=== PATIENT | male | born 1945 | race African-American/Black ===

== ENCOUNTER 2017-04-28 12:14 | Inpatient (IN) | payer MEDICARE, MEDICAID ==
[2017-04-28 12:48] LABS: Bilirubin Negative (Negative); Blood, Urine Negative (Negative); Clarity CLEAR (Clear); Glucose, Urine (Dipstick) Negative (Negative); Leukocyte Small (Negative); Nitrite Negative (Negative); Protein, Urine (Dipstick) 30 mg/dL (Neg-Trace); Specific Gravity, Urine 1.025 (1.002-1.036); Urobilinogen 0.2 mg/dL (0.2-1.0)
[2017-04-28 12:50] LABS: Bacteria/HPF None Seen HPF (None Seen); Hyaline Casts/LPF 7-10 HYALINE CAST LPF (0-3 Hyaline); Pathc Cast-AUWi Flag 0.67 (0-2.49); RBC/HPF 0-3 HPF (0-3); Squamous Epithelial 0-3 HPF (0-3); WBC/HPF 21-50 HPF (0-3)
[2017-04-28 12:53] LABS: #Basophils 0.1 thou/uL (0.0-0.2); #Eosinphils 0.2 thou/uL (0.0-0.7); #Monocytes 0.7 thou/uL (0.11-0.59); #Neutrophils 4.6 thou/uL (1.40-6.50); %Eosinophils 2.5 % (0.0-10.0); %Lymphocytes 26.7 % (21.0-51.0); %Monocytes 9.1 % (0.0-10.0); %Neutrophils 60.7 % (42.0-75.0); Mean Corpuscular HGB CONC 30.3 g/dL (32.0-36.0); Mean Corpuscular Hemoglobin 22.2 pg (27.0-31.0); Mean Corpuscular Volume 73.2 fl (80.0-94.0); Mean Platelet Volume 5.6 fL (7.4-10.4); Platelet Count 129 thou/uL (130-400); RBC Distribution Width 14.1 % (11.5-14.5); Red Blood Cell (RBC) Count 5.41 mill/uL (4.70-6.10); White Blood Cell (WBC) Count 7.5 thou/uL (4.8-10.8)
[2017-04-28 12:58] LABS: Renal Epithelial None Seen HPF (0-3); Transitional Epithelial NONE SEEN HPF (0-3)
[2017-04-28 13:01] LABS: INR-International Normal Ratio 1.1; PTT 28.5 SEC (22.9-36.1); Prothrombin Time 14.6 SEC (12.0-14.7)
[2017-04-28 13:05] LABS: Hypochromia SLIGHT = 6-15 cells (100X) (0-5/hpf); MDiff Complete? YES; Microcytosis SLIGHT = 6-15 cells (100X) (0-5/hpf); Polychromasia SLIGHT = 2-3 cells (100X) (0-2/hpf); Target Cells MODERATE= 6-15 cells (100X) (0-1/hpf)
[2017-04-28 13:07] LABS: ALT (SGPT) 28 U/L (8-55); AST (SGOT) 80 U/L (5-34); Albumin 3.8 g/dL (3.4-4.8); Alkaline Phosphatase 98 U/L (40-150); Anion Gap 16 mmol/L (10-20); BUN (Urea Nitrogen) 12 mg/dL (8.4-25.7); Bilirubin, Total 0.7 mg/dL (0.2-1.2); Calc. Creatinine Clearance 0 mL/min (70-130); Calcium 9.5 mg/dL (7.8-10.44); Carbon Dioxide 22 mmol/L (23-31); Chloride 106 mmol/L (98-107); Estimated GFR-MDRD Greater than 90; Globulin 3.6 g/dL (2.4-3.5); Glucose 71 mg/dL (80-115); Potassium 3.9 mmol/L (3.5-5.1); Protein, Total 7.4 g/dL (5.8-8.1); Sodium 140 mmol/L (136-145)
[2017-04-28 13:11] LABS: CKMB 5.9 ng/mL (0-6.6); Troponin I Less than 0.010 ng/mL (< 0.028)
--- NOTE | 2017-04-28 13:18 | CT ---
HEAD CT WITHOUT CONTRAST: Date: 04-28-17 Comparison: 07-15-14 History: Lethargy, altered mental status, mental status changes. Technique: Serial axial CT imaging at 5 mm intervals from vertex through skull base without contrast. FINDINGS: The imaged paranasal sinuses/mastoid air cells are well aerated. There is no displaced calvarial frac ture noted. There is no intracranial hemorrhage, midline shift, mass effect, or ventricular enlargement. There is periventricular deep white matter hypodensity, evidence of stable small vessel disease. Stable mild cerebral volume loss. IMPRESSION: Stable head CT. No intracranial hemorrhage. POS: [facility]
[2017-04-28] MEDS ORDERED: Dextrose 50% Abboject 50 ML SYRINGE ONE (16:17)
[2017-04-28] MEDS ORDERED: Ondansetron ODT 4 MG TAB PO PRN (18:37)
[2017-04-28] MEDS ORDERED: Bisacodyl 5 MG TAB PO PRN (18:37)
[2017-04-28] MEDS ORDERED: Ondansetron HCl/PF 4 MG/2 ML Vial IVP PRN (18:37)
[2017-04-28 19:27] VITALS: BMI 22.1
[2017-04-28] MEDS: Sodium Chloride 0.9% 1,000 ML IV SCH (20:09)
[2017-04-28] MEDS: Famotidine 20 MG TAB PO SCH (20:20)
[2017-04-28] MEDS: Docusate 100 MG CAP PO SCH (20:20)
--- NOTE | 2017-04-28 22:34 | HP ---
PRIMARY CARE PHYSICIAN: Marcelo Wick M.D. CHIEF COMPLAINT: Altered mental status. HISTORY OF PRESENT ILLNESS: This is a 71-year-old male assisted resident at [facility] with a history of Wernicke's encephalopathy, generalized seizures, TIA and dementia as well as dysphasia. He reportedly though is able to sit up in his wheelchair and rolling self around and is able to speak with people at the assisted and he does eat food himself. He has had a decline over the last week, especially over the last couple of days with decreased speech, decreased ability to feed himself and to move around. He was seen at the [facility] yesterday, diagnosed with UTI and started on Keflex. He had significant worsening this morning, became more lethargic and was noted to have right-sided weakness around 8:00 this morning, so he was brought in here. It was initially thought to be a possible stroke; however, when he arrived, patient was moving both his arms kind of shaking them a little bit. He is not able to speak with any clarity and not able to say anything understandable, not able to follow any instructions. The patient was found to have infected-looking urine in the emergency room and was given a dose of Rocephin. The remainder of his lab work vital signs was normal, so he has been given fluids and put in observation for this UTI. PAST MEDICAL HISTORY: All history taken from the chart as the patient is not able to give any history. 1. Seizure disorder. 2. Wernicke's encephalopathy. 3. Dementia. 4. Dysphagia. 5. Transient ischemic attack. 6. History of transient ischemic attack. 7. Atrial flutter. 8. Hypotension. PAST SURGICAL HISTORY: None. PAST PSYCHIATRIC: None. SOCIAL HISTORY: Patient has a history of alcohol abuse, previous to being in the assisted. No tobacco or illicit drug use currently. He did previously smoke. FAMILY HISTORY: No known family history. ALLERGIES: No known drug allergies CURRENT MEDICATIONS: home medications reviewed from chart, please see [place] for list REVIEW OF SYSTEMS: Unable to obtain secondary to patient's mental status. See HPI for all that is known from chart review and from the emergency physician's discussion with the nurse practitioner at the assisted. PHYSICAL EXAMINATION: VITAL SIGNS: Blood pressure 145/65, pulse 82, respirations 12, O2 sat 100% on room air, temperature 97.6. GENERAL: This is a thin -[place] male who is alert, but confused and disoriented with mumbling and discernible speech, not able to follow commands. HEENT: Eyes, left pupil is equal, round and reactive to light. Right, there seemed to have some scarring on the cornea and was not reactive. Oropharynx, dry mucous membranes, I did not notice any exudate or swelling. NECK: Supple, no lymphadenopathy, no thyroid nodules or enlargement, no JVD. HEART: Regular rate and rhythm, no murmurs, rubs or gallops. LUNGS: Clear to auscultation bilaterally, no wheezes, crackles or rhonchi, though he would not get any deep breaths for good exam. ABDOMEN: Soft, nontender to palpation, normoactive bowel sounds, no hepatosplenomegaly or other masses. EXTREMITIES: Patient has thin extremities. He is kind of shaking his right extremity, not moving his left as much. He has decent tone in the extremities and his reflexes are equal in all extremities. SKIN: No rashes or other lesions noted. NEUROLOGIC: No focal findings. LABORATORY DATA: CBC grossly unremarkable, mild microcytic anemia, hemoglobin of 12, MCV of 73. Coagulation profile normal. Complete metabolic panel notable only for an AST of 80, carbon dioxide of 22 with a glucose of 71. Cardiac marker set negative x1. Lactic acid was normal. Glucose, recheck with fingerstick, was 68. Urinalysis did show ketones, small leukocyte esterase and 21-50 white blood cells, no bacteria seen currently. He did not have any valproic acid. His Keppra level was 26.6, which is therapeutic, though on the lower side of that. Brain CT done in the emergency room shows no intracranial hemorrhage, stable. ASSESSMENT AND PLAN: 1. Acute encephalopathy, likely secondary to his infection. 2. Urinary tract infection without evidence of sepsis. Patient was given Rocephin in the emergency room, and we will continue IV in the hospital. 3. Appears dehydrated. We will give IV fluids and watch for improvement in his mental status. 4. History of seizure disorder. We will resume patient's anti-seizure medications. 5. History of dysphasia. We will have patient's speech therapy to evaluate the patient's swallow and give recommendations. 6. Code status, unable to confirm this with the patient right now. No family at the bedside. This will need to be confirmed later. MTDD
[2017-04-29] MEDS: Sodium Chloride 0.9% 1,000 ML IV SCH ×3 (01:25→09:00)
[2017-04-29 05:24] LABS: #Basophils 0.1 thou/uL (0.0-0.2); #Eosinphils 0.4 thou/uL (0.0-0.7); #Lymphocytes 1.4 thou/uL (1.20-3.40); #Monocytes 0.6 thou/uL (0.11-0.59); #Neutrophils 3.4 thou/uL (1.40-6.50); %Basophils 1.2 % (0.0-1.0); %Eosinophils 7.1 % (0.0-10.0); %Lymphocytes 23.8 % (21.0-51.0); %Monocytes 10.4 % (0.0-10.0); %Neutrophils 57.5 % (42.0-75.0); Anion Gap 13 mmol/L (10-20); BUN (Urea Nitrogen) 12 mg/dL (8.4-25.7); Calc. Creatinine Clearance 96 mL/min (70-130); Carbon Dioxide 24 mmol/L (23-31); Chloride 108 mmol/L (98-107); Estimated GFR-MDRD Greater than 90; Glucose 60 mg/dL (80-115); Hemoglobin 12.1 g/dL (14.0-18.0); Mean Corpuscular HGB CONC 29.7 g/dL (32.0-36.0); Mean Corpuscular Hemoglobin 21.8 pg (27.0-31.0); Mean Corpuscular Volume 73.4 fl (80.0-94.0); Platelet Count 124 thou/uL (130-400); RBC Distribution Width 13.9 % (11.5-14.5); Red Blood Cell (RBC) Count 5.57 mill/uL (4.70-6.10); Sodium 141 mmol/L (136-145)
[2017-04-29] MEDS: Famotidine 20 MG TAB PO SCH ×2 (09:01→20:43)
[2017-04-29] MEDS: Enoxaparin Sodium 40 MG/0.4 ML SYRINGE SC SCH (09:01)
[2017-04-29] MEDS: Docusate 100 MG CAP PO SCH ×2 (09:02→20:43)
[2017-04-29] MEDS ORDERED: clonazePAM 1 MG TAB PO PRN (09:47)
[2017-04-29] MEDS ORDERED: Labetalol HCl 100 MG/20 ML VIAL SLOW IVP PRN (09:48)
[2017-04-29] MEDS ORDERED: Artificial Tears 18 DROP/0.9 ML EA EYE PRN (09:48)
[2017-04-29] MEDS ORDERED: HYDROcodone/Acetaminophen 5/325 mg Tablet PO PRN (09:48)
[2017-04-29] MEDS ORDERED: Eucerin (Mineral Oil/Petrolatum,White) 30 gm Jar TOP PRN (09:48)
[2017-04-29] MEDS ORDERED: Loratadine 10 MG TAB PO PRN (09:48)
[2017-04-29] MEDS ORDERED: hydrALAZINE 20 MG/ML VIAL SLOW IVP PRN (09:48)
[2017-04-29] MEDS ORDERED: Mag-Al 1200 mg/1200 mg/30 ML UDCUP PO PRN (09:48)
[2017-04-29] MEDS ORDERED: Loperamide HCl 2 MG CAP PO PRN (09:48)
[2017-04-29] MEDS ORDERED: Acetaminophen 325 MG TAB PO PRN (09:48)
[2017-04-29] MEDS ORDERED: Sodium Chloride 0.65% Nasal 44 ML BOT EA NARE PRN (09:48)
[2017-04-29] MEDS ORDERED: Milk Of Magnesia 30 ML UDCUP PO PRN (09:48)
[2017-04-29] MEDS ORDERED: Diabetic Tussin 200 MG/10 ML UDCUP PO PRN (09:48)
[2017-04-29] MEDS ORDERED: Chloraseptic Spray 180 ml Bottle PO PRN (09:48)
[2017-04-29] MEDS ORDERED: Temazepam 15 MG CAP PO PRN (09:48)
[2017-04-29] MEDS ORDERED: Famotidine/PF 20 mg/2ml Vial SLOW IVP PRN (09:57)
[2017-04-29] MEDS: Dextrose 5 %-0.45 % NaCl 1,000 ML IV SCH (10:37)
--- NOTE | 2017-04-29 11:39 | PDOC.PN ---
- Subjective Encounter Start Date: 04/29/17 Encounter Start Time: 08:10 -: old records requested/rev pt is still disoriented, did not talk to me, NPO for speech evaluation - Objective MAR Reviewed: Yes Vital Signs & Weight: Vital Signs (12 hours) Temp Pulse Resp BP Pulse Ox 04/29/17 08:16 97.4 F L 54 L 16 179/73 H 99 04/29/17 07:46 97.6 F 59 L 18 04/29/17 04:36 97.6 F 59 L 18 174/73 H 95 04/29/17 00:27 97.8 F 62 18 165/77 H 99 Result Diagrams: 04/29/17 04:57 04/29/17 04:57 Radiology Reviewed by me: Yes Phys Exam - Physical Examination Constitutional: NAD HEENT: PERRLA, sclera anicteric Neck: no JVD, supple Respiratory: no wheezing, no rales, no rhonchi Cardiovascular: RRR, no significant murmur, no rub Gastrointestinal: soft, non-tender, no distention, positive bowel sounds Musculoskeletal: no edema, pulses present unable to assess as he did not follow command Lymphatic: no nodes Deviation from normal: unable to assess Skin: no rash, normal turgor Dx/Plan (1) Encephalopathy acute Code(s): G93.40 - ENCEPHALOPATHY, UNSPECIFIED Status: Acute (2) Urinary tract infection Status: Acute (3) Anxiety and depression Code(s): F41.8 - OTHER SPECIFIED ANXIETY DISORDERS Status: Chronic (4) Dementia Code(s): F03.90 - UNSPECIFIED DEMENTIA WITHOUT BEHAVIORAL DISTURBANCE Status: Chronic (5) Epilepsy Code(s): G40.909 - EPILEPSY, UNSP, NOT INTRACTABLE, WITHOUT STATUS EPILEPTICUS Status: Chronic - Plan cont current plan of care, continue antibiotics * continue rocephin * medication reviewed as below * symptomatic treatment * speech therapy evaluation * Pepcid IV as needed * continue IVF * follow culture. Review of Systems - Review of Systems Other: unable to review due to cognitive status - Medications/Allergies Allergies/Adverse Reactions: Allergies Allergy/AdvReac Type Severity Reaction Status Date / Time No Known Allergies Allergy Verified 04/28/17 19:28 Medications: Current Medications Acetaminophen (Tylenol) 650 mg PO Q4H PRN PRN Reason: Headache/Fever or Mild Pain Hydrocodone Bitart/Acetaminophen ([place] 5/325) 1 tab PO Q4H PRN PRN Reason: Moderate Pain (4-6) Al Hydroxide/Mg Hydroxide (Maalox) 15 ml PO Q4H PRN PRN Reason: Heartburn or Indigestion Artificial Tears (Tears Naturale) 0 drop EA EYE PRN PRN PRN Reason: Dry Eyes Aspirin (Aspirin Chewable) 81 mg PO DAILY [facility] Bisacodyl (Dulcolax) 10 mg PO DAILYPRN PRN PRN Reason: Constipation Clonazepam (Klonopin) 1 mg PO TID PRN PRN Reason: Anxiety Docusate Sodium (Colace) 100 mg PO BID [facility] Last Admin: 04/29/17 09:02 Dose: Not Given Enoxaparin Sodium (Lovenox) 40 mg SC 0900 [facility] Last Admin: 04/29/17 09:01 Dose: 40 mg Famotidine (Pepcid) 20 mg PO BID [facility] Last Admin: 04/29/17 09:01 Dose: Not Given Famotidine (Pepcid) 20 mg SLOW IVP BID PRN PRN Reason: GI Upset Ferrous Sulfate (Feosol) 325 mg PO DAILY [facility] Guaifenesin (Robitussin Sf) 200 mg PO Q4H PRN PRN Reason: Cough Hydralazine HCl (Apresoline) 10 mg SLOW IVP Q4H PRN PRN Reason: Systolic BP > 180 Ceftriaxone Sodium 2 gm/ (Sodium Chloride) 100 mls @ 200 mls/hr IVPB 1300 [facility] Dextrose/Sodium Chloride (D5 1/2 Ns) 1,000 mls @ 75 mls/hr IV .[id number] [facility] Last Admin: 04/29/17 10:37 Dose: 1,000 mls Labetalol HCl (Normodyne) 20 mg SLOW IVP Q4H PRN PRN Reason: Systolic BP > 180 Levetiracetam (Keppra) 1,000 mg PO BID [facility] Loperamide HCl (Imodium) 2 mg PO PRN PRN PRN Reason: Diarrhea/Loose Stools Loratadine (Claritin) 10 mg PO DAILYPRN PRN PRN Reason: Sinus Symptoms Magnesium Hydroxide (Milk Of Magnesium) 30 ml PO DAILYPRN PRN PRN Reason: Constipation Memantine (Namenda) 10 mg PO DAILY [facility] Mineral Oil/White Petrolatum (Eucerin Cream) 0 gm TOP BIDPRN PRN PRN Reason: Dry Skin Multivitamins (Theragran) 1 tab PO DAILY [facility] Ondansetron HCl (Zofran Odt) 4 mg PO Q6H PRN PRN Reason: Nausea/Vomiting Ondansetron HCl (Zofran) 4 mg IVP Q6H PRN PRN Reason: Nausea/Vomiting Oxcarbazepine (Trileptal) 600 mg PO BID [facility] (Melatonin/Pyridoxine Hcl (B6) [Melatonin 5 Mg Tablet] 1 Tab) 0 each PO HS [facility] Phenol (Chloraseptic [place] 180 Ml Bot) 0 ml PO PRN PRN PRN Reason: Sore Throat Pramipexole Dihydrochloride (Mirapex) 0.5 mg PO BID [facility] Sodium Chloride (Flush - Normal Saline) 10 ml IVF PRN PRN PRN Reason: Saline Flush Sodium Chloride ([place] Nasal [place] 0.65%) 0 ml EA NARE QIDPRN PRN PRN Reason: Nasal Congestion Temazepam (Restoril) 15 mg PO HSPRN PRN PRN Reason: Insomnia Thiamine HCl (Thiamine) 100 mg PO DAILY [facility]
[2017-04-29] MEDS: cefTRIAXone\\ROCEPHIN 2 GM in Sodium Chloride 0.9% 100 ML IVPB SCH (12:12)
[2017-04-29] MEDS: OXcarbazepine 300 MG TAB PO SCH (20:43)
[2017-04-29] MEDS: Melatonin 3 MG TAB PO SCH (20:43)
[2017-04-29] MEDS: pyridOXINE 50 MG (B6) TAB PO SCH (20:43)
[2017-04-29] MEDS: levETIRAcetam 500 MG TAB PO SCH (20:44)
[2017-04-29] MEDS: Pramipexole Di-HCl 0.25 MG TAB PO SCH (20:44)
[2017-04-29] MEDS ORDERED: MELATONIN PO SCH (21:00)
[2017-04-29] MEDS ORDERED: Non-Formulary Item 1 EACH (Pramipexole Di-Hcl [Mirapex] 0.5 MG) PO SCH (21:00)
[2017-04-29] MEDS ORDERED: PYRIDOXINE HCL PO SCH (21:00)
[2017-04-30] MEDS: Dextrose 5 %-0.45 % NaCl 1,000 ML IV SCH ×2 (00:24→11:48)
[2017-04-30] MEDS: levETIRAcetam 500 MG TAB PO SCH ×3 (07:38→20:13)
[2017-04-30] MEDS: Ferrous Sulfate 325 MG TAB PO SCH (07:38)
[2017-04-30] MEDS: Famotidine 20 MG TAB PO SCH ×2 (07:38→20:14)
[2017-04-30] MEDS: Docusate 100 MG CAP PO SCH ×2 (07:38→20:15)
[2017-04-30] MEDS: OXcarbazepine 300 MG TAB PO SCH ×3 (07:39→20:14)
[2017-04-30] MEDS: Pramipexole Di-HCl 0.25 MG TAB PO SCH ×2 (07:39→20:15)
[2017-04-30] MEDS: Multivit, Therapeutic 1 TAB PO SCH (07:39)
[2017-04-30] MEDS ORDERED: Ferrous Sulfate 325 MG TAB PO SCH (08:00)
[2017-04-30] MEDS: Enoxaparin Sodium 40 MG/0.4 ML SYRINGE SC SCH (08:07)
[2017-04-30] MEDS ORDERED: Non-Formulary Item 1 EACH (Multivitamin [Multi-Vitamin Daily] 1 TABLET) PO SCH (09:00)
[2017-04-30] MEDS ORDERED: Non-Formulary Item 1 EACH (Ferrous Sulfate [Ferrous Sulfate] 325 MG) PO SCH (09:00)
--- NOTE | 2017-04-30 10:37 | PDOC.PN ---
- Subjective Encounter Start Date: 04/30/17 Encounter Start Time: 13:30 Subjective: Patient more awake today. Denies complaint. Sister and brother at -: bedside. Patient baseline verbally per family, but normally able to -: push around in WC with feet and feed self with left hand. - Objective MAR Reviewed: Yes Vital Signs & Weight: Vital Signs (12 hours) Temp Pulse Resp BP Pulse Ox 04/30/17 08:00 98.1 F 50 L 16 160/58 H 100 04/30/17 06:34 98.3 F 48 L 18 140/52 L 100 I&O: 04/29/17 04/30/17 05/01/17 06:59 06:59 06:59 Intake Total 2142 Balance 2142 Result Diagrams: 04/29/17 04:57 04/29/17 04:57 Phys Exam - Physical Examination Constitutional: NAD HEENT: moist MMs Respiratory: no wheezing, no rales, no rhonchi Cardiovascular: RRR Gastrointestinal: soft, positive bowel sounds right her held up against chest and pillrolling (baseline per sister) Psychiatric: normal affect Dx/Plan (1) Encephalopathy acute Code(s): G93.40 - ENCEPHALOPATHY, UNSPECIFIED Status: Acute Comment: improving (2) Urinary tract infection Status: Acute (3) Anxiety and depression Code(s): F41.8 - OTHER SPECIFIED ANXIETY DISORDERS Status: Chronic (4) Dementia Code(s): F03.90 - UNSPECIFIED DEMENTIA WITHOUT BEHAVIORAL DISTURBANCE Status: Chronic Comment: Hx of Wernike's Encephalopathy (5) Epilepsy Code(s): G40.909 - EPILEPSY, UNSP, NOT INTRACTABLE, WITHOUT STATUS EPILEPTICUS Status: Chronic - Plan cont current plan of care, continue antibiotics cultures negative -: continue IV abx, fluids -: If continues improving tomorrow and able to take better po can be -: switched to oral abx and back to NH. * . - Discharge Day Encounter end time: 14:00
[2017-04-30] MEDS: cefTRIAXone\\ROCEPHIN 2 GM in Sodium Chloride 0.9% 100 ML IVPB SCH (13:40)
[2017-04-30] MEDS: Melatonin 3 MG TAB PO SCH (20:14)
[2017-04-30] MEDS: pyridOXINE 50 MG (B6) TAB PO SCH (20:14)
[2017-05-01] MEDS: Dextrose 5 %-0.45 % NaCl 1,000 ML IV SCH ×2 (01:53→14:36)
[2017-05-01 06:10] LABS: Eosinophils 4 % (0-10); Hemoglobin 11.4 g/dL (14.0-18.0); Lymphocytes 26 % (21-51); MDiff Complete? YES; Mean Corpuscular Hemoglobin 22.6 pg (27.0-31.0); Mean Corpuscular Volume 72.9 fl (80.0-94.0); Mean Platelet Volume 11.5 fL (7.4-10.4); Monocytes 6 % (0-10); Neutrophil 64 % (42-75); PLT Morphology Comment Appears Decreased; Platelet Count 115 thou/uL (130-400); RBC Distribution Width 13.6 % (11.5-14.5); Red Blood Cell (RBC) Count 5.06 mill/uL (4.70-6.10); White Blood Cell (WBC) Count 5.3 thou/uL (4.8-10.8)
[2017-05-01 06:12] LABS: Anion Gap 11 mmol/L (10-20); BUN (Urea Nitrogen) 5 mg/dL (8.4-25.7); Calc. Creatinine Clearance 97 mL/min (70-130); Calcium 8.8 mg/dL (7.8-10.44); Carbon Dioxide 25 mmol/L (23-31); Chloride 107 mmol/L (98-107); Estimated GFR-MDRD Greater than 90; Glucose 103 mg/dL (80-115); Sodium 140 mmol/L (136-145)
[2017-05-01] MEDS: levETIRAcetam 500 MG TAB PO SCH ×2 (08:59→20:27)
[2017-05-01] MEDS: Famotidine 20 MG TAB PO SCH ×2 (08:59→20:26)
[2017-05-01] MEDS: OXcarbazepine 300 MG TAB PO SCH ×2 (08:59→20:27)
[2017-05-01] MEDS: Docusate 100 MG CAP PO SCH ×2 (09:00→20:27)
[2017-05-01] MEDS: Enoxaparin Sodium 40 MG/0.4 ML SYRINGE SC SCH (09:00)
[2017-05-01] MEDS: Multivit, Therapeutic 1 TAB PO SCH (09:00)
[2017-05-01] MEDS: Ferrous Sulfate 325 MG TAB PO SCH (09:00)
[2017-05-01] MEDS: Pramipexole Di-HCl 0.25 MG TAB PO SCH ×2 (09:01→20:27)
[2017-05-01] MEDS: cefTRIAXone\\ROCEPHIN 2 GM in Sodium Chloride 0.9% 100 ML IVPB SCH (12:16)
--- NOTE | 2017-05-01 18:19 | PDOC.PN ---
- Subjective Encounter Start Date: 05/01/17 Encounter Start Time: 08:00 Pt seen for followup re: UTI. Awake and alert, not answering questions, could not complete ROS. - Objective MAR Reviewed: Yes Vital Signs & Weight: Vital Signs (12 hours) Temp Pulse Resp BP Pulse Ox 05/01/17 08:00 97.6 F 55 L 16 97 05/01/17 07:49 97.6 F 55 L 16 165/62 H 97 I&O: 04/30/17 05/01/17 05/02/17 06:59 06:59 06:59 Intake Total 2142 2821 Balance 2142 2821 Result Diagrams: 05/01/17 05:10 05/01/17 05:10 Phys Exam - Physical Examination Constitutional: NAD HEENT: moist MMs Neck: supple Respiratory: clear to auscultation bilateral Cardiovascular: RRR Gastrointestinal: soft Neurological: moves all 4 limbs Psychiatric: normal affect Dx/Plan (1) Urinary tract infection Status: Acute (2) Anxiety and depression Code(s): F41.8 - OTHER SPECIFIED ANXIETY DISORDERS Status: Chronic (3) Dementia Code(s): F03.90 - UNSPECIFIED DEMENTIA WITHOUT BEHAVIORAL DISTURBANCE Status: Chronic Comment: Hx of Wernike's Encephalopathy (4) Epilepsy Code(s): G40.909 - EPILEPSY, UNSP, NOT INTRACTABLE, WITHOUT STATUS EPILEPTICUS Status: Chronic - Plan continue antibiotics, PT/OT, out of bed/ambulate * . Continue antibiotics, await cultures. Review of Systems - Medications/Allergies Allergies/Adverse Reactions: Allergies Allergy/AdvReac Type Severity Reaction Status Date / Time No Known Allergies Allergy Verified 04/28/17 19:28 Medications: Current Medications Acetaminophen (Tylenol) 650 mg PO Q4H PRN PRN Reason: Headache/Fever or Mild Pain Hydrocodone Bitart/Acetaminophen ([place] 5/325) 1 tab PO Q4H PRN PRN Reason: Moderate Pain (4-6) Al Hydroxide/Mg Hydroxide (Maalox) 15 ml PO Q4H PRN PRN Reason: Heartburn or Indigestion Artificial Tears (Tears Naturale) 0 drop EA EYE PRN PRN PRN Reason: Dry Eyes Aspirin (Aspirin Chewable) 81 mg PO DAILY [facility] Last Admin: 05/01/17 09:00 Dose: 81 mg Bisacodyl (Dulcolax) 10 mg PO DAILYPRN PRN PRN Reason: Constipation Clonazepam (Klonopin) 1 mg PO TID PRN PRN Reason: Anxiety Docusate Sodium (Colace) 100 mg PO BID [facility] Last Admin: 05/01/17 09:00 Dose: 100 mg Enoxaparin Sodium (Lovenox) 40 mg SC 0900 [facility] Last Admin: 05/01/17 09:00 Dose: 40 mg Famotidine (Pepcid) 20 mg PO BID [facility] Last Admin: 05/01/17 08:59 Dose: 20 mg Ferrous Sulfate (Feosol) 325 mg PO DAILY [facility] Last Admin: 05/01/17 09:00 Dose: 325 mg Guaifenesin (Robitussin Sf) 200 mg PO Q4H PRN PRN Reason: Cough Hydralazine HCl (Apresoline) 10 mg SLOW IVP Q4H PRN PRN Reason: Systolic BP > 180 Ceftriaxone Sodium 2 gm/ (Sodium Chloride) 100 mls @ 200 mls/hr IVPB 1300 [facility] Last Admin: 05/01/17 12:16 Dose: 100 mls Dextrose/Sodium Chloride (D5 1/2 Ns) 1,000 mls @ 75 mls/hr IV .[id number] [facility] Last Admin: 05/01/17 14:36 Dose: 1,000 mls Labetalol HCl (Normodyne) 20 mg SLOW IVP Q4H PRN PRN Reason: Systolic BP > 180 Levetiracetam (Keppra) 1,000 mg PO BID [facility] Last Admin: 05/01/17 08:59 Dose: 1,000 mg Loperamide HCl (Imodium) 2 mg PO PRN PRN PRN Reason: Diarrhea/Loose Stools Loratadine (Claritin) 10 mg PO DAILYPRN PRN PRN Reason: Sinus Symptoms Magnesium Hydroxide (Milk Of Magnesium) 30 ml PO DAILYPRN PRN PRN Reason: Constipation Melatonin (Melatonin) 6 mg PO HS [facility] Last Admin: 04/30/17 20:14 Dose: 6 mg Memantine (Namenda) 10 mg PO DAILY [facility] Last Admin: 05/01/17 09:00 Dose: 10 mg Mineral Oil/White Petrolatum (Eucerin Cream) 0 gm TOP BIDPRN PRN PRN Reason: Dry Skin Multivitamins (Theragran) 1 tab PO DAILY [facility] Last Admin: 05/01/17 09:00 Dose: 1 tab Ondansetron HCl (Zofran Odt) 4 mg PO Q6H PRN PRN Reason: Nausea/Vomiting Ondansetron HCl (Zofran) 4 mg IVP Q6H PRN PRN Reason: Nausea/Vomiting Oxcarbazepine (Trileptal) 600 mg PO BID [facility] Last Admin: 05/01/17 08:59 Dose: 600 mg Phenol (Chloraseptic [place] 180 Ml Bot) 0 ml PO PRN PRN PRN Reason: Sore Throat Pramipexole Dihydrochloride (Mirapex) 0.5 mg PO BID [facility] Last Admin: 05/01/17 09:01 Dose: 0.5 mg Pyridoxine HCl (Vitamin B 6) 50 mg PO HS [facility] Last Admin: 04/30/17 20:14 Dose: 50 mg Sodium Chloride (Flush - Normal Saline) 10 ml IVF PRN PRN PRN Reason: Saline Flush Sodium Chloride ([place] Nasal [place] 0.65%) 0 ml EA NARE QIDPRN PRN PRN Reason: Nasal Congestion Temazepam (Restoril) 15 mg PO HSPRN PRN PRN Reason: Insomnia Thiamine HCl (Thiamine) 100 mg PO DAILY [facility] Last Admin: 05/01/17 09:00 Dose: 100 mg
[2017-05-01] MEDS: Melatonin 3 MG TAB PO SCH (20:26)
[2017-05-01] MEDS: pyridOXINE 50 MG (B6) TAB PO SCH (20:27)
[2017-05-02] MEDS: Dextrose 5 %-0.45 % NaCl 1,000 ML IV SCH ×2 (04:08→14:07)
[2017-05-02] MEDS: Docusate 100 MG CAP PO SCH ×2 (08:54→21:25)
[2017-05-02] MEDS: OXcarbazepine 300 MG TAB PO SCH ×2 (08:54→21:26)
[2017-05-02] MEDS: Ferrous Sulfate 325 MG TAB PO SCH (08:54)
[2017-05-02] MEDS: Pramipexole Di-HCl 0.25 MG TAB PO SCH ×2 (08:54→21:26)
[2017-05-02] MEDS: Famotidine 20 MG TAB PO SCH ×2 (08:54→21:25)
[2017-05-02] MEDS: Enoxaparin Sodium 40 MG/0.4 ML SYRINGE SC SCH (08:54)
[2017-05-02] MEDS: levETIRAcetam 500 MG TAB PO SCH ×2 (08:54→21:25)
[2017-05-02] MEDS: Multivit, Therapeutic 1 TAB PO SCH (08:54)
--- NOTE | 2017-05-02 13:49 | PDOC.PN ---
- Subjective Encounter Start Date: 05/02/17 Encounter Start Time: 10:20 Pt seen for followup re: UTI. Answering a few questions. No complaints. - Objective MAR Reviewed: Yes Vital Signs & Weight: Vital Signs (12 hours) Temp Pulse Resp BP Pulse Ox 05/02/17 08:00 98.3 F 98 16 05/02/17 07:27 98.3 F 98 16 150/83 H 98 I&O: 05/01/17 05/02/17 05/03/17 06:59 06:59 06:59 Intake Total 2821 2731 480 Balance 2821 2731 480 Result Diagrams: 05/01/17 05:10 05/01/17 05:10 Phys Exam - Physical Examination Constitutional: NAD HEENT: moist MMs Neck: supple Respiratory: clear to auscultation bilateral Cardiovascular: RRR Gastrointestinal: soft Neurological: moves all 4 limbs Psychiatric: normal affect Dx/Plan (1) Urinary tract infection Status: Acute (2) Anxiety and depression Code(s): F41.8 - OTHER SPECIFIED ANXIETY DISORDERS Status: Chronic (3) Dementia Code(s): F03.90 - UNSPECIFIED DEMENTIA WITHOUT BEHAVIORAL DISTURBANCE Status: Chronic Comment: Hx of Wernike's Encephalopathy (4) Epilepsy Code(s): G40.909 - EPILEPSY, UNSP, NOT INTRACTABLE, WITHOUT STATUS EPILEPTICUS Status: Chronic - Plan continue antibiotics, PT/OT, out of bed/ambulate * . Obtain urine C/S result from outside ER, then switch to appropriate oral antibiotics. Review of Systems - Review of Systems Respiratory: negative: Cough, Dry, Shortness of Breath, Hemoptysis, SOB with Excertion, Pleuritic Pain, Sputum, Wheezing Cardiovascular: negative: chest pain, palpitations, orthopnea, paroxysmal nocturnal dyspnea, edema, light headedness Genitourinary: negative: Dysuria, Frequency, Incontinence, Hematuria, Retention - Medications/Allergies Allergies/Adverse Reactions: Allergies Allergy/AdvReac Type Severity Reaction Status Date / Time No Known Allergies Allergy Verified 04/28/17 19:28 Medications: Current Medications Acetaminophen (Tylenol) 650 mg PO Q4H PRN PRN Reason: Headache/Fever or Mild Pain Hydrocodone Bitart/Acetaminophen ([place] 5/325) 1 tab PO Q4H PRN PRN Reason: Moderate Pain (4-6) Al Hydroxide/Mg Hydroxide (Maalox) 15 ml PO Q4H PRN PRN Reason: Heartburn or Indigestion Artificial Tears (Tears Naturale) 0 drop EA EYE PRN PRN PRN Reason: Dry Eyes Aspirin (Aspirin Chewable) 81 mg PO DAILY [facility] Last Admin: 05/02/17 08:54 Dose: 81 mg Bisacodyl (Dulcolax) 10 mg PO DAILYPRN PRN PRN Reason: Constipation Clonazepam (Klonopin) 1 mg PO TID PRN PRN Reason: Anxiety Docusate Sodium (Colace) 100 mg PO BID [facility] Last Admin: 05/02/17 08:54 Dose: 100 mg Enoxaparin Sodium (Lovenox) 40 mg SC 0900 [facility] Last Admin: 05/02/17 08:54 Dose: 40 mg Famotidine (Pepcid) 20 mg PO BID [facility] Last Admin: 05/02/17 08:54 Dose: 20 mg Ferrous Sulfate (Feosol) 325 mg PO DAILY [facility] Last Admin: 05/02/17 08:54 Dose: 325 mg Guaifenesin (Robitussin Sf) 200 mg PO Q4H PRN PRN Reason: Cough Hydralazine HCl (Apresoline) 10 mg SLOW IVP Q4H PRN PRN Reason: Systolic BP > 180 Ceftriaxone Sodium 2 gm/ (Sodium Chloride) 100 mls @ 200 mls/hr IVPB 1300 [facility] Last Admin: 05/01/17 12:16 Dose: 100 mls Dextrose/Sodium Chloride (D5 1/2 Ns) 1,000 mls @ 75 mls/hr IV .[id number] [facility] Last Admin: 05/02/17 04:08 Dose: 1,000 mls Labetalol HCl (Normodyne) 20 mg SLOW IVP Q4H PRN PRN Reason: Systolic BP > 180 Levetiracetam (Keppra) 1,000 mg PO BID [facility] Last Admin: 05/02/17 08:54 Dose: 1,000 mg Loperamide HCl (Imodium) 2 mg PO PRN PRN PRN Reason: Diarrhea/Loose Stools Loratadine (Claritin) 10 mg PO DAILYPRN PRN PRN Reason: Sinus Symptoms Magnesium Hydroxide (Milk Of Magnesium) 30 ml PO DAILYPRN PRN PRN Reason: Constipation Melatonin (Melatonin) 6 mg PO HS [facility] Last Admin: 05/01/17 20:26 Dose: 6 mg Memantine (Namenda) 10 mg PO DAILY [facility] Last Admin: 05/02/17 08:54 Dose: 10 mg Mineral Oil/White Petrolatum (Eucerin Cream) 0 gm TOP BIDPRN PRN PRN Reason: Dry Skin Multivitamins (Theragran) 1 tab PO DAILY [facility] Last Admin: 05/02/17 08:54 Dose: 1 tab Ondansetron HCl (Zofran Odt) 4 mg PO Q6H PRN PRN Reason: Nausea/Vomiting Ondansetron HCl (Zofran) 4 mg IVP Q6H PRN PRN Reason: Nausea/Vomiting Oxcarbazepine (Trileptal) 600 mg PO BID [facility] Last Admin: 05/02/17 08:54 Dose: 600 mg Phenol (Chloraseptic [place] 180 Ml Bot) 0 ml PO PRN PRN PRN Reason: Sore Throat Pramipexole Dihydrochloride (Mirapex) 0.5 mg PO BID [facility] Last Admin: 05/02/17 08:54 Dose: 0.5 mg Pyridoxine HCl (Vitamin B 6) 50 mg PO [facility] Last Admin: 05/01/17 20:27 Dose: 50 mg Sodium Chloride (Flush - Normal Saline) 10 ml IVF PRN PRN PRN Reason: Saline Flush Sodium Chloride ([place] Nasal [place] 0.65%) 0 ml EA NARE QIDPRN PRN PRN Reason: Nasal Congestion Temazepam (Restoril) 15 mg PO HSPRN PRN PRN Reason: Insomnia Thiamine HCl (Thiamine) 100 mg PO DAILY [facility] Last Admin: 05/02/17 08:54 Dose: 100 mg
[2017-05-02] MEDS: cefTRIAXone\\ROCEPHIN 2 GM in Sodium Chloride 0.9% 100 ML IVPB SCH (14:06)
[2017-05-02] MEDS: Melatonin 3 MG TAB PO SCH (21:26)
[2017-05-02] MEDS: pyridOXINE 50 MG (B6) TAB PO SCH (21:26)
[2017-05-03] MEDS: Dextrose 5 %-0.45 % NaCl 1,000 ML IV SCH ×2 (05:38→20:45)
[2017-05-03] MEDS: Docusate 100 MG CAP PO SCH ×2 (07:45→20:46)
[2017-05-03] MEDS: Famotidine 20 MG TAB PO SCH ×2 (07:45→20:46)
[2017-05-03] MEDS: Pramipexole Di-HCl 0.25 MG TAB PO SCH ×2 (07:45→20:47)
[2017-05-03] MEDS: levETIRAcetam 500 MG TAB PO SCH ×2 (07:45→20:46)
[2017-05-03] MEDS: OXcarbazepine 300 MG TAB PO SCH ×2 (07:45→20:47)
[2017-05-03] MEDS: Enoxaparin Sodium 40 MG/0.4 ML SYRINGE SC SCH (07:46)
[2017-05-03] MEDS: Multivit, Therapeutic 1 TAB PO SCH (07:46)
[2017-05-03] MEDS: Ferrous Sulfate 325 MG TAB PO SCH (07:46)
[2017-05-03] MEDS: cefTRIAXone\\ROCEPHIN 2 GM in Sodium Chloride 0.9% 100 ML IVPB SCH (11:56)
--- NOTE | 2017-05-03 13:10 | PDOC.PN ---
- Subjective Encounter Start Date: 05/03/17 Encounter Start Time: 08:00 Pt seen for followup re: UTI. Feels well, no complaints. - Objective MAR Reviewed: Yes Vital Signs & Weight: Vital Signs (12 hours) Temp Pulse Resp BP Pulse Ox 05/03/17 08:00 98.3 F 53 L 16 05/03/17 07:17 98.3 F 53 L 16 162/67 H 100 I&O: 05/02/17 05/03/17 05/04/17 06:59 06:59 06:59 Intake Total 2731 2880 240 Balance 2731 2880 240 Result Diagrams: 05/01/17 05:10 05/01/17 05:10 Phys Exam - Physical Examination Constitutional: NAD HEENT: moist MMs Neck: supple Respiratory: clear to auscultation bilateral Cardiovascular: RRR Gastrointestinal: soft Neurological: moves all 4 limbs Psychiatric: normal affect Skin: no rash Dx/Plan (1) Urinary tract infection Status: Acute (2) Anxiety and depression Code(s): F41.8 - OTHER SPECIFIED ANXIETY DISORDERS Status: Chronic (3) Dementia Code(s): F03.90 - UNSPECIFIED DEMENTIA WITHOUT BEHAVIORAL DISTURBANCE Status: Chronic Comment: Hx of Wernike's Encephalopathy (4) Epilepsy Code(s): G40.909 - EPILEPSY, UNSP, NOT INTRACTABLE, WITHOUT STATUS EPILEPTICUS Status: Chronic - Plan continue antibiotics, PT/OT, out of bed/ambulate * . Change to oral antibiotics. Likely discharge 24-48 hrs. Review of Systems - Review of Systems Constitutional: negative: fever, chills, sweats, weakness, malaise Genitourinary: negative: Dysuria, Frequency, Incontinence, Hematuria, Retention - Medications/Allergies Allergies/Adverse Reactions: Allergies Allergy/AdvReac Type Severity Reaction Status Date / Time No Known Allergies Allergy Verified 04/28/17 19:28 Medications: Current Medications Acetaminophen (Tylenol) 650 mg PO Q4H PRN PRN Reason: Headache/Fever or Mild Pain Hydrocodone Bitart/Acetaminophen ([place] 5/325) 1 tab PO Q4H PRN PRN Reason: Moderate Pain (4-6) Al Hydroxide/Mg Hydroxide (Maalox) 15 ml PO Q4H PRN PRN Reason: Heartburn or Indigestion Artificial Tears (Tears Naturale) 0 drop EA EYE PRN PRN PRN Reason: Dry Eyes Aspirin (Aspirin Chewable) 81 mg PO DAILY [facility] Last Admin: 05/03/17 07:45 Dose: 81 mg Bisacodyl (Dulcolax) 10 mg PO DAILYPRN PRN PRN Reason: Constipation Clonazepam (Klonopin) 1 mg PO TID PRN PRN Reason: Anxiety Docusate Sodium (Colace) 100 mg PO BID [facility] Last Admin: 05/03/17 07:45 Dose: 100 mg Enoxaparin Sodium (Lovenox) 40 mg SC 0900 [facility] Last Admin: 05/03/17 07:46 Dose: 40 mg Famotidine (Pepcid) 20 mg PO BID [facility] Last Admin: 05/03/17 07:45 Dose: 20 mg Ferrous Sulfate (Feosol) 325 mg PO DAILY [facility] Last Admin: 05/03/17 07:46 Dose: 325 mg Guaifenesin (Robitussin Sf) 200 mg PO Q4H PRN PRN Reason: Cough Hydralazine HCl (Apresoline) 10 mg SLOW IVP Q4H PRN PRN Reason: Systolic BP > 180 Ceftriaxone Sodium 2 gm/ (Sodium Chloride) 100 mls @ 200 mls/hr IVPB 1300 [facility] Last Admin: 05/03/17 11:56 Dose: 100 mls Dextrose/Sodium Chloride (D5 1/2 Ns) 1,000 mls @ 75 mls/hr IV .[id number] [facility] Last Admin: 05/03/17 05:38 Dose: 1,000 mls Labetalol HCl (Normodyne) 20 mg SLOW IVP Q4H PRN PRN Reason: Systolic BP > 180 Levetiracetam (Keppra) 1,000 mg PO BID [facility] Last Admin: 05/03/17 07:45 Dose: 1,000 mg Loperamide HCl (Imodium) 2 mg PO PRN PRN PRN Reason: Diarrhea/Loose Stools Loratadine (Claritin) 10 mg PO DAILYPRN PRN PRN Reason: Sinus Symptoms Magnesium Hydroxide (Milk Of Magnesium) 30 ml PO DAILYPRN PRN PRN Reason: Constipation Melatonin (Melatonin) 6 mg PO HS [facility] Last Admin: 05/02/17 21:26 Dose: 6 mg Memantine (Namenda) 10 mg PO DAILY [facility] Last Admin: 05/03/17 07:46 Dose: 10 mg Mineral Oil/White Petrolatum (Eucerin Cream) 0 gm TOP BIDPRN PRN PRN Reason: Dry Skin Multivitamins (Theragran) 1 tab PO DAILY [facility] Last Admin: 05/03/17 07:46 Dose: 1 tab Ondansetron HCl (Zofran Odt) 4 mg PO Q6H PRN PRN Reason: Nausea/Vomiting Ondansetron HCl (Zofran) 4 mg IVP Q6H PRN PRN Reason: Nausea/Vomiting Oxcarbazepine (Trileptal) 600 mg PO BID [facility] Last Admin: 05/03/17 07:45 Dose: 600 mg Phenol (Chloraseptic [place] 180 Ml Bot) 0 ml PO PRN PRN PRN Reason: Sore Throat Pramipexole Dihydrochloride (Mirapex) 0.5 mg PO BID [facility] Last Admin: 05/03/17 07:45 Dose: 0.5 mg Pyridoxine HCl (Vitamin B 6) 50 mg PO HS [facility] Last Admin: 05/02/17 21:26 Dose: 50 mg Sodium Chloride (Flush - Normal Saline) 10 ml IVF PRN PRN PRN Reason: Saline Flush Sodium Chloride ([place] Nasal [place] 0.65%) 0 ml EA NARE QIDPRN PRN PRN Reason: Nasal Congestion Temazepam (Restoril) 15 mg PO HSPRN PRN PRN Reason: Insomnia Thiamine HCl (Thiamine) 100 mg PO DAILY [facility] Last Admin: 05/03/17 07:45 Dose: 100 mg
[2017-05-03] MEDS: Cefdinir 300 MG CAP PO SCH (20:46)
[2017-05-03] MEDS: pyridOXINE 50 MG (B6) TAB PO SCH (20:47)
[2017-05-03] MEDS: Melatonin 3 MG TAB PO SCH (20:47)
[2017-05-04] MEDS: Pramipexole Di-HCl 0.25 MG TAB PO SCH (08:19)
[2017-05-04] MEDS: Famotidine 20 MG TAB PO SCH (08:19)
[2017-05-04] MEDS: levETIRAcetam 500 MG TAB PO SCH (08:19)
[2017-05-04] MEDS: OXcarbazepine 300 MG TAB PO SCH (08:21)
[2017-05-04] MEDS: Multivit, Therapeutic 1 TAB PO SCH (08:24)
[2017-05-04] MEDS: Cefdinir 300 MG CAP PO SCH (08:24)
[2017-05-04] MEDS: Enoxaparin Sodium 40 MG/0.4 ML SYRINGE SC SCH (08:25)
[2017-05-04] MEDS: Ferrous Sulfate 325 MG TAB PO SCH (08:25)
[2017-05-04] MEDS: Docusate 100 MG CAP PO SCH (08:25)
[2017-05-04] MEDS: Dextrose 5 %-0.45 % NaCl 1,000 ML IV SCH (08:42)
--- NOTE | 2017-05-04 13:51 | DIS ---
DATE OF ADMISSION: 04/28/2017 DATE OF DISCHARGE: 05/04/2017 PRIMARY CARE PHYSICIAN: Marcelo Wick M.D. DISCHARGE DIAGNOSES: 1. Urinary tract infection. 2. Acute encephalopathy, resolved. CONDITION OF PATIENT ON THE DAY OF DISCHARGE: Stable. Mr. Rickie Venegas was assessed on the day of discharge. There were no complaints. PHYSICAL EXAMINATION: VITAL SIGNS: Stable. HEART: S1 and S2 are heard, regular. LUNGS: Clear to auscultation. HOSPITAL COURSE: Mr. Rickie Venegas is a pleasant 71-year-old gentleman who was admitted to [facility] on 04/28/2016 for acute encephalopathy secondary to urinary tract infection. He had urine cultures done at an outside facility prior to admission. Eventually, those urine cultur es were negative. Blood cultures at this facility were also negative. He continued to improve clini srini and is being discharged home on 3 more days of cefdinir 300 mg 2 times a day. DISCHARGE MEDICATIONS: Cefdinir 300 mg 2 times a day for 3 more days, aspirin 81 mg daily, clonazepa m 1 mg 3 times a day as needed, ferrous sulfate 325 mg daily, levetiracetam 1000 mg 2 times a day, me latonin 5 mg at bedtime, memantine 10 mg daily, multivitamins 1 tablet daily, Trileptal 600 mg 2 time s a day, pramipexole 0.5 mg 2 times a day, and thiamine 100 mg daily. Many thanks for allowing me to participate in your patient's care. Please feel free to contact me wi th any questions or concerns. DISCHARGE DESTINATION: Home, which is [facility]. TOTAL AMOUNT OF TIME SPENT COORDINATING THIS DISCHARGE: 31 minutes.
[2017-05-04 14:58] VITALS: BP 155/51; TEMP 97.6
== END 2017-05-04 15:49 | DRG 689 ==
LOC: ERS 12:14 → T4-A 16:20
PROVIDERS: ADMIT Emergency Medicine; ATTEND Emergency Medicine
DX: N39.0 Urinary tract infection, site not specified (principal); G93.49 Other encephalopathy; G40.909 Epilepsy, unspecified, not intractable, without status epilepticus; F03.90 Unspecified dementia, unspecified severity, without behavioral disturbance, psychotic disturbance, mood disturbance, and anxiety; Z86.73 Personal history of transient ischemic attack (TIA), and cerebral infarction without residual deficits; E86.0 Dehydration; R47.02 Dysphasia; F41.8 Other specified anxiety disorders
CPT/HCPCS: 36415; 36416; 51701; 70450; 80048; 80053; 80164; 80177; 80183; 81003; 81015; 82553; 83605; 84484; 85025; 85610; 85730; 87040; 93005; 96374; 96375; G8996-GN-CI; G8997-GN-CI; G9165-GN-CL; G9166-GN-CJ; J0696; J1650; J7050